=== PATIENT | female | born 1960 | race Caucasian/White ===

== ENCOUNTER 2017-07-18 17:16 | Emergency (ER) | payer MEDICARE, MEDICAID ==
[~2017-07-18] VITALS: Ht 162.6 cm; Wt 90.9 kg
[~2017-07-18 17:16] MED LIST: ASPIRIN E.C. 8181 MG PO; FLEXERIL 1010 MG/TAB PO; NO HOME MEDICATIONS; PERCOCET 325 MG1 TA2 PO; blood pressure
[2017-07-18 17:19] VITALS: TEMP 98.5
[2017-07-18] MEDS ORDERED: AFRIN 15 ML15 ML NS (17:54)
[2017-07-18] MEDS ORDERED: MULTI VITAMINS1 TAB PO (17:54)
[2017-07-18] MEDS ORDERED: CLARITIN 1010 MG/TAB PO (17:55)
[2017-07-18] MEDS ORDERED: HCTZ 25MG TAB25 MG PO (17:55)
[2017-07-18 18:23] LABS: BASO % 0.4 % (0.0-2.0); EOS # 0.1 (0.0-0.7); EOS % 1.1 % (0-4.0); GRAN # 4.5 (1.4-6.5); GRAN % 49.4 % (42.2-75.2); HEMATOCRIT 45.7 % (37.0-47.0); HEMOGLOBIN 15.9 g/dl (12.5-16.0); LYMPH # 3.9 (1.2-3.4); LYMPH % 42.8 % (20.0-51.0); MEAN CELL VOLUME 87 fl (80.0-100.0); MEAN CORPUSCULAR HEMOGLOBIN 30 pg (27.0-31.0); MEAN CORPUSCULAR HGB CONC 35 g/dl (33.0-37.0); MEAN PLATELET VOLUME 10.4 fl (7.4-10.4); MONO # 0.6 (0.1-0.6); PLATELET COUNT 249 K/mm3 (130-400); RED BLOOD COUNT 5.25 M/mm3 (4.10-5.30); REDCELL DISTRIBUTION WIDTH-CV 12.1 % (11.5-14.5); WHITE BLOOD COUNT 9.2 K/mm3 (4.8-10.8)
[2017-07-18 18:30] LABS: ADJUSTED CALCIUM 9.7 mg/dL (8.4-10.2); ALBUMIN 4.9 gm/dL (3.5-5.0); CALCIUM 10.4 mg/dL (8.4-10.2); CREATININE, serum 0.93 mg/dL (0.52-1.25); POTASSIUM 3.8 mmol/L (3.4-5.0); TOTAL PROTEIN 8.4 gm/dL (6.4-8.2)
[2017-07-18 19:23] LABS: PH 5 (5-8); SQUAMOUS EPITHELIAL 0-2 /hpf; URINE APPEARANCE Hazy; URINE BACTERIA Rare /hpf; URINE BILIRUBIN Negative (NEGATIVE); URINE BLOOD 1+ (NEGATIVE); URINE COLOR Yellow; URINE GLUCOSE Negative (NEGATIVE); URINE KETONE Negative (NEGATIVE); URINE RBC 0-2 /hpf; URINE UROBILINOGEN Negative (NEGATIVE); URINE WBC 0-2 /hpf
[2017-07-18] MEDS ORDERED: ZOFRAN 4MG T4 MG/TAB PO (19:53)
[2017-07-18 19:59] VITALS: BP 153/103; PULSE 80
== END 2017-07-18 20:11 | disposition home or self-care (01) ==
LOC: COL.ER 17:16
PROVIDERS: Emergency Medicine
DX: R53.83 Other fatigue (principal); I10 Essential (primary) hypertension; F17.210 Nicotine dependence, cigarettes, uncomplicated; Z79.82 Long term (current) use of aspirin; Z98.1 Arthrodesis status
CPT/HCPCS: J1885; J2405; J7030

== ENCOUNTER → 2017-08-04 | Outpatient (CLI) | payer MEDICARE, MEDICAID ==
[~2017-08-04] MED LIST changes: +AFRIN 15 ML15 ML NS; +CLARITIN 1010 MG/TAB PO; +HCTZ 25MG TAB25 MG PO; +MULTI VITAMINS1 TAB PO; +ZOFRAN 4MG T4 MG/TAB PO
== END ==
LOC: MC.RAD 10:40
DX: Z12.31 Encounter for screening mammogram for malignant neoplasm of breast (principal); N64.89 Other specified disorders of breast

== ENCOUNTER → 2017-08-07 | Outpatient (CLI) | payer MEDICARE, MEDICAID | LOC: MC.RAD 09:56 | DX: N64.89 Other specified disorders of breast (principal) ==

== ENCOUNTER → 2017-11-03 | Outpatient (CLI) | payer MEDICARE, MEDICAID ==
[~2017-11-03] MED LIST changes: +BLOOD PRESSURE; +CEFTIN500 MG PO; +NORCO 325 MG-51 TAB PO
== END ==
LOC: COL.RAD 10:44
DX: M50.11 Cervical disc disorder with radiculopathy, high cervical region (principal); Z98.1 Arthrodesis status
CPT/HCPCS: A9585

== ENCOUNTER → 2017-12-22 | Outpatient (CLI) | payer MEDICARE, MEDICAID | LOC: COL.RAD 09:49 | DX: N28.82 Megaloureter (principal); K76.0 Fatty (change of) liver, not elsewhere classified | CPT/HCPCS: J7050; Q9967 ==

== ENCOUNTER 2018-05-30 16:53 | Emergency (ER) | payer MEDICARE, MEDICAID ==
[~2018-05-30] VITALS: Ht 165.1 cm; Wt 92.3 kg
[2018-05-30 16:55] VITALS: TEMP 99.5
[2018-05-30 18:19] LABS: COLLECTION METHOD CLEAN CATCH
[2018-05-30 18:34] LABS: MUCOUS Present /lpf; PH 6 (5-8); URINE APPEARANCE Hazy; URINE BACTERIA None Seen /hpf; URINE BILIRUBIN Negative (NEGATIVE); URINE BLOOD Negative (NEGATIVE); URINE COLOR Yellow; URINE GLUCOSE Negative (NEGATIVE); URINE KETONE Negative (NEGATIVE); URINE LEUKOCYTE ESTERASE Negative (NEGATIVE); URINE NITRATE Negative (NEGATIVE); URINE PROTEIN(semi-quant) Negative (NEGATIVE); URINE RBC 0-2 /hpf; URINE UROBILINOGEN Negative (NEGATIVE)
[2018-05-30] MEDS ORDERED: NORCO 325 MG-51 TAB PO (19:27)
[2018-05-30] MEDS ORDERED: PREDNISONE20 MG PO (19:27)
[2018-05-30 19:35] VITALS: BP 148/104; PULSE 66
== END 2018-05-30 19:41 | disposition home or self-care (01) ==
LOC: COL.ER 16:53
PROVIDERS: Physician Assistant
DX: M54.5 Low back pain (principal); G89.29 Other chronic pain; I10 Essential (primary) hypertension; F17.210 Nicotine dependence, cigarettes, uncomplicated; Z79.891 Long term (current) use of opiate analgesic; Z79.82 Long term (current) use of aspirin
CPT/HCPCS: J1170; J1885; J7512

== ENCOUNTER → 2018-08-17 | Outpatient (CLI) | payer MEDICARE, MEDICAID ==
[~2018-08-17] MED LIST changes: +PREDNISONE20 MG PO
== END ==
LOC: MC.RAD 07:00
DX: Z12.31 Encounter for screening mammogram for malignant neoplasm of breast (principal)

== ENCOUNTER → 2019-09-02 | Outpatient (CLI) | payer MEDICARE, MEDICAID | LOC: MC.RAD 08:15 | DX: Z12.31 Encounter for screening mammogram for malignant neoplasm of breast (principal) ==

== ENCOUNTER → 2020-09-05 | Outpatient (CLI) | payer MEDICARE, OTHER | LOC: MC.RAD 08:08 | DX: Z12.31 Encounter for screening mammogram for malignant neoplasm of breast (principal) ==

== ENCOUNTER → 2020-11-03 | Outpatient (CLI) | payer MEDICARE, OTHER | LOC: COL.PUL 11:17 | DX: R05 Cough (principal); F17.200 Nicotine dependence, unspecified, uncomplicated ==

== ENCOUNTER 2021-10-26 10:33 | Outpatient (CLI) | payer MEDICARE, OTHER ==
[2021-10-26] VITALS (7 sets, daily range): BP systolic 168–186; BP diastolic 90–101; PULSE 68–87; TEMP 99.5
== END 2021-10-26 13:10 | disposition home or self-care (01) ==
LOC: EUO 10:33
DX: U07.1 COVID-19 (principal); E66.9 Obesity, unspecified; E11.9 Type 2 diabetes mellitus without complications
CPT/HCPCS: M0245

== ENCOUNTER 2021-11-03 17:37 | Emergency (ER) | payer MEDICARE ==
[~2021-11-03] VITALS: Ht 162.6 cm; Wt 90.9 kg
[2021-11-03] MEDS ORDERED: PREDNISONE20 MG PO (18:23)
[2021-11-03 18:39] VITALS: BP 146/93; PULSE 77; TEMP 98.3
== END 2021-11-03 18:39 | disposition home or self-care (01) ==
LOC: COL.ER 17:37
DX: L50.9 Urticaria, unspecified (principal); G89.29 Other chronic pain; M54.9 Dorsalgia, unspecified; F17.210 Nicotine dependence, cigarettes, uncomplicated; Z79.1 Long term (current) use of non-steroidal anti-inflammatories (NSAID)
CPT/HCPCS: J7512

== ENCOUNTER → 2021-11-22 | Outpatient (CLI) | payer MEDICARE | LOC: MC.RAD 09-19 14:15 | DX: Z12.31 Encounter for screening mammogram for malignant neoplasm of breast (principal); N64.89 Other specified disorders of breast ==

== ENCOUNTER → 2021-11-26 | Outpatient (CLI) | payer MEDICARE | LOC: MC.RAD 13:55 | DX: N63.20 Unspecified lump in the left breast, unspecified quadrant (principal) ==

== ENCOUNTER 2022-06-05 16:51 | Emergency (ER) | payer MEDICARE, OTHER ==
[~2022-06-05] VITALS: Ht 162.6 cm; Wt 93.2 kg
[2022-06-05] MEDS ORDERED: NORCO 325 MG-51 TAB PO (17:59)
[2022-06-05] MEDS ORDERED: PREDNISONE20 MG PO (18:11)
[2022-06-05 18:39] VITALS: BP 125/82; PULSE 73; TEMP 99.3
== END 2022-06-05 18:35 | disposition home or self-care (01) ==
LOC: COL.ER 16:51
DX: M54.50 Low back pain, unspecified (principal); F17.210 Nicotine dependence, cigarettes, uncomplicated; Z98.890 Other specified postprocedural states; Z28.310 Unvaccinated for COVID-19
CPT/HCPCS: J1885; J2360

== ENCOUNTER 2022-09-06 11:35 | Day surgery (SDC) | payer MEDICARE ==
[~2022-09-06] VITALS: Ht 162.6 cm; Wt 90.2 kg
[2022-09-06] MEDS ORDERED: FLEXERIL5 MG PO (12:15)
[2022-09-06 12:17] VITALS: BP 171/93; PULSE 63; TEMP 96.6
[2022-09-06 13:55] VITALS: BP 136/83; PULSE 63
--- NOTE | 2022-09-06 13:55 | NUR ---
Patient returns to [facility] [address] per cart and transfers from cart to recliner with one person assist. IV fluids infusing. Call light in reach. Temp 97.8 and room air sats 97%. Dr. Gu in the room and talks with patient. All questions answered.
[2022-09-06 14:10] VITALS: BP 135/83; PULSE 61
--- NOTE | 2022-09-06 14:10 | NUR ---
Offered snack. Refuses. States she prefers to eat at home.
--- NOTE | 2022-09-06 14:14 | NUR ---
IV discontinued and site is free of redness or swelling. Patient dresses self and notified ride to come and pick her up.
--- NOTE | 2022-09-06 14:27 | NUR ---
Dismissal instructions given and patient voices understanding of these.
--- NOTE | 2022-09-06 14:31 | NUR ---
Dismissed to home driven by friend per private vehicle and taken to car per wheelchair and assisted into car with disimssal instructions in hand.
== END 2022-09-06 14:31 | disposition home or self-care (01) ==
LOC: SDCO 11:35
DX: Z12.11 Encounter for screening for malignant neoplasm of colon (principal); D12.2 Benign neoplasm of ascending colon; F17.210 Nicotine dependence, cigarettes, uncomplicated; Z86.16 Personal history of COVID-19
CPT/HCPCS: J2704; J3010; J7120

== ENCOUNTER → 2022-09-12 | Outpatient (CLI) | payer MEDICARE ==
[~2022-09-12] MED LIST changes: +FLEXERIL5 MG PO
== END ==
LOC: MHCPAIN 10:50
DX: M53.3 Sacrococcygeal disorders, not elsewhere classified (principal); M54.12 Radiculopathy, cervical region; M96.1 Postlaminectomy syndrome, not elsewhere classified; G56.01 Carpal tunnel syndrome, right upper limb; Z98.1 Arthrodesis status
CPT/HCPCS: G0463

== ENCOUNTER → 2023-01-15 | Outpatient (CLI) | payer MEDICARE | LOC: MC.RAD 07:15 | DX: Z12.31 Encounter for screening mammogram for malignant neoplasm of breast (principal) ==

== ENCOUNTER 2023-11-19 11:20 | Emergency (ER) | payer MEDICARE ==
[~2023-11-19] VITALS: Ht 162.6 cm; Wt 91.8 kg
[~2023-11-19 11:20] MED LIST changes: +ALTACE 5MG5 MG PO; +ASPIRIN 81M81 MG/TA2 PO; +LIPITOR 40MG TA40 MG PO; +NORVASC 10MG10 MG PO; +TOPROL XL 25MG25 MG PO; +VITAL-D1 TAB PO; +VITAMIN C500 MG PO
[2023-11-19 11:25] VITALS: TEMP 97.7
[2023-11-19 11:48] LABS: BASO % 0.5 % (0.0-2.0); EOS # 0.2 K/mm3 (0.0-0.7); EOS % 3.2 % (0.0-4.0); GRAN # 2.7 K/mm3 (1.4-6.5); GRAN % 44.2 % (42.2-75.2); HEMATOCRIT 40.3 % (37.0-47.0); HEMOGLOBIN 13.5 g/dl (12.5-16.0); LYMPH # 2.9 K/mm3 (1.2-3.4); LYMPH % 47.3 % (20.0-51.0); MEAN CELL VOLUME 89 fl (80.0-100.0); MEAN CORPUSCULAR HEMOGLOBIN 30 pg (27-31); MEAN CORPUSCULAR HGB CONC 34 g/dl (33.0-37.0); MEAN PLATELET VOLUME 9.9 fl (7.4-10.4); MONO # 0.3 K/mm3 (0.1-0.6); MONO % 4.8 % (1.7-9.3); PLATELET COUNT 201 K/mm3 (130-400); RED BLOOD COUNT 4.53 M/mm3 (4.10-5.30); REDCELL DISTRIBUTION WIDTH-CV 11.9 % (11.5-14.5)
[2023-11-19] MEDS ORDERED: DESYREL 50MG50 MG PO (11:56)
[2023-11-19] MEDS ORDERED: FLONASE NASAL S16 GM NS (11:56)
[2023-11-19] MEDS ORDERED: WELLBUTRIN XL150 MG PO (11:57)
[2023-11-19] MEDS ORDERED: COZAAR 25MG25 MG/TAB PO (11:57)
[2023-11-19 11:59] LABS: ALANINE AMINOTRANSFERASE 31 U/L (0-55); ALBUMIN 3.9 gm/dL (3.4-4.8); ALKALINE PHOSPHATASE 93 U/L (40-150); ANION GAP 11 mmol/L (7-16); AST,SGOT 18 U/L (5-34); BILIRUBIN,TOTAL 0.6 mg/dL (0.2-1.2); BLOOD UREA NITROGEN 19 mg/dL (10-20); CALCIUM 9.4 mg/dL (8.4-10.2); CARBON DIOXIDE 21 mmol/L (23-31); CHLORIDE 108 mmol/L (98-107); GLUCOSE 98 mg/dL (70-99); POTASSIUM 4.2 mmol/L (3.5-4.5); SODIUM 140 mmol/L (136-145); TOTAL PROTEIN 6.8 gm/dL (6.2-8.1)
[2023-11-19 12:05] LABS: TROPONIN-I < 0.010 ng/mL (0.00-0.033)
[2023-11-19 14:11] VITALS: BP 161/92; PULSE 64
== END 2023-11-19 14:14 | disposition home or self-care (01) ==
LOC: COL.ER 11:20
PROVIDERS: Emergency Medicine
DX: R07.89 Other chest pain (principal)

== ENCOUNTER → 2024-02-26 | Outpatient (CLI) | payer MEDICARE ==
[~2024-02-26] MED LIST changes: +COZAAR 25MG25 MG/TAB PO; +DESYREL 50MG50 MG PO; +FLONASE NASAL S16 GM NS; +WELLBUTRIN XL150 MG PO
== END ==
LOC: MC.RAD 07:53
DX: Z12.31 Encounter for screening mammogram for malignant neoplasm of breast (principal)